=== PATIENT | male | born 1985 | race Hispanic/Latino ===

== ENCOUNTER 2024-05-29 09:17 | Emergency (ER) | payer OTHER ==
[~2024-05-29] VITALS: Ht 167.6 cm; Wt 87.1 kg
[2024-05-29 09:59] LABS: APPEARANCE,URINE CLEAR (CLEAR); BILIRUBIN,URINE NEGATIVE (NEGATIVE); COLOR,URINE LIGHT-YELLOW (YELLOW); GLUCOSE, URINE (UA) NEGATIVE (NEGATIVE); KETONES,URINE NEGATIVE (NEGATIVE); LEUKOCYTE ESTERASE ,URINE NEGATIVE Leu/uL (NEGATIVE); NITRATE,URINE NEGATIVE (NEGATIVE); OCCULT BLOOD,URINE NEGATIVE (NEGATIVE); PH,URINE 5.5 (5.0-8.0); PROTEIN,URINE NEGATIVE (NEGATIVE); UROBILINOGEN,URINE 0.2 mg/dL (0.2-1.0)
[2024-05-29 10:04] LABS: ADD UA MICROSCOPIC NO
[2024-05-29] MEDS ORDERED: IBUP-2077 PO (10:24)
[2024-05-29 10:39] VITALS: BP 131/82; PULSE 90; RESP 18; O2SAT 98
== END 2024-05-29 10:50 | disposition home or self-care (01) ==
LOC: EDH 09:17
DX: N50.811 Right testicular pain (principal)
CPT/HCPCS: 76870; 81003